=== PATIENT | female | born 1960 | race Caucasian/White ===

== ENCOUNTER → 2019-10-03 09:17 | Outpatient (CLI) | payer MEDICAID ==
[2013-10-30 17:13] VITALS: BMI 39.9
[~2019-10-03 09:17] MED LIST: BACTRIM DS TABL1 TAB PO; CYCLOBENZAPRINE10 MG PO; NORCO 5/325 TAB1 TA1 PO; PERCOCET 10/3251 TA1 PO
== END | disposition home or self-care (01) ==
LOC: D.CT 09:17
PROVIDERS: ATTEND Family Medicine
DX: N28.89 Other specified disorders of kidney and ureter (principal)

== ENCOUNTER → 2020-04-11 08:59 | Outpatient (CLI) | payer MEDICAID ==
[2013-10-30 17:13] VITALS: BMI 39.9
[2020-04-11 10:33] LABS: APTT 29.5 SECONDS (22.8-39.4); INR 0.95 (0.85-1.17); PROTIME 12.7 SECONDS (11.6-15.0)
[2020-04-11 10:52] LABS: ALBUMIN 3.5 g/dL (3.4-5.0); ANION GAP 10.1 mmol/L (8-16); BILIRUBIN - DIRECT 0.15 mg/dL (0.00-0.30); BILIRUBIN - INDIRECT 0.46 mg/dL (0.00-1.00); BILIRUBIN - TOTAL 0.61 mg/dL (0.2-1.3); CALCIUM 8.8 mg/dL (8.5-10.1); CARBON DIOXIDE 25.6 mmol/L (21.0-32.0); CHOL - HDL RATIO 3.6 ratio (2.3-4.1); CREATININE - SERUM 1.9 mg/dL (0.6-1.3); LDL-HDL RATIO 2.3 ratio (1.5-3.5); POTASSIUM - SERUM 3.7 mmol/L (3.5-5.1); PROTEIN - SERUM 7.7 g/dL (6.4-8.2)
[2020-04-11 10:56] LABS: % SATURATION 25 % (15-55); IRON 65 ug/dl (35-150); TOTAL IRON BIND CAPACITY 257 ug/dl (260-445); UNSAT IRON BIND CAPACITY 192 ug/dl (150-375)
[2020-04-12 07:15] LABS: HAPTOGLOBIN 72 mg/dL (33-346)
[2020-04-12 10:12] LABS: ANA REFLEX - ANTICHROMATIN ABS >8.0 AI (0.0-0.9); ANA REFLEX - CENTROMERE B ABS <0.2 AI (0.0-0.9); ANA REFLEX - DBL STRANDED DNA 3 IU/mL (0-9); ANA REFLEX - DIRECT Positive (Negative); ANA REFLEX - JO-1 AB <0.2 AI (0.0-0.9); ANA REFLEX - RNP ANTIBODIES 0.3 AI (0.0-0.9); ANA REFLEX - SCL-70 <0.2 AI (0.0-0.9); ANA REFLEX - SJOGRENS AB SSB <0.2 AI (0.0-0.9); ANA REFLEX - SMITH AB 0.6 AI (0.0-0.9)
[2020-04-12 11:12] LABS: HEPATITIS C ANTIBODY 0.1 S/CO RAT (0.0-0.9)
== END | disposition home or self-care (01) ==
LOC: D.LAB 08:00 → D.US 09:30
PROVIDERS: ATTEND Internal Medicine Gastroenterology
DX: R74.8 Abnormal levels of other serum enzymes (principal); R10.13 Epigastric pain